=== PATIENT | female | born 1980 | race Caucasian/White ===

== ENCOUNTER 2017-01-29 16:12 | Emergency (ER) | payer MEDICAID, OTHER ==
[2017-01-29 16:32] VITALS: BP 102/70
[2017-01-29] MEDS ORDERED: GI Cocktail Oral Solution 30 ML PO ONE ×2 (16:32→17:04)
--- NOTE | 2017-01-29 16:32 | EDM.PDOC ---
ED HPI GI/ABDOMINAL - General Chief Complaint: Gastrointestinal Problem Stated Complaint: Reflux symptoms Time Seen by Provider: 01/29/17 16:32 Source of Information: Reports: Patient History Limitations: Reports: No limitations - History of Present Illness INITIAL COMMENTS - FREE TEXT/NARRATIVE: patient complains of epigastric pain for 2 days duration. Patient has been on clindamycin for a tooth infection. Complains of persistent epigastric pain. Not related to position, movement, activity. No vomiting. No difficulty with swallowing. Patient has had some diarrhea. No blood in her stool. No urinary symptoms. Denies epigastric pain or any other abdominal complaints. Pain does not radiate into her back. No diaphoresis. No pain to the shoulders. Timing/Duration: Reports: Day(s): Location: other (epigastric) Quality: Reports: ache, burning Severity: mild Associated Symptoms (-Female): Reports: denies other symptoms - Related Data Allergies/ADRs: Allergies Allergy/AdvReac Type Severity Reaction Status Date / Time erythromycin base Allergy Nausea Verified 01/29/17 16:21 Home Meds: Home Meds Vits #93/Iron Fum/FA [ Formula Tablet] 1 each PO DAILY [History] Clindamycin HCl 300 mg PO TID 01/29/17 [History] Levonorgestrel [Mirena] 1 each IY 01/29/17 [History] Past Medical History - Past Health History Medical/Surgical History: Denies Medical/Surgical History HEENT History: Reports: None Cardiovascular History: Reports: None Respiratory History: Reports: None Genitourinary History: Reports: UTI, recurrent 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: This patient is 17 weeks preg with her 4th Musculoskeletal History: Reports: Other (see below) Other Musculoskeletal History: spina bifida occulta Psychiatric History: Reports: Anxiety - Infectious Disease History Infectious Disease History: Reports: Chicken pox - Past Surgical History HEENT Surgical History: Reports: Adenoidectomy, Myringotomy w tube(s), Oral surgery Female Surgical History: Reports: Other (see below) Other Female Surgeries/Procedures: LGSIL hx, cryo done Musculoskeletal Surgical History: Reports: Other (see below) Other Musculoskeletal Surgeries/Procedures:: hx hand and toe fx, bursitis left knee Social & Family History - Family History Family Medical History: Noncontributory Cardiac: Reports: None Respiratory: Reports: None GI: Reports: None Endocrine/Metabolic: Reports: None Hematologic: Reports: None Immunologic: Reports: None - Tobacco Use Smoking Status *Q: Current Every Day Smoker Years of Tobacco use: 20 Packs/Tins Daily: 0.5 Used Tobacco, but Quit: No Month Tobacco Last Used: February Second Hand Smoke Exposure: Yes - Caffeine Use Caffeine Use: Reports: Soda - Recreational Drug Use Recreational Drug Use: No ED ROS GENERAL - Review of Systems Review Of Systems: See Below Constitutional: Reports: no symptoms HEENT: Reports: No symptoms Respiratory: Reports: No Symptoms Cardiovascular: Reports: No symptoms Endocrine: Reports: no symptoms GI/Abdominal: Reports: Diarrhea, Decreased appetite, Other (epigastric pain). Denies: Difficulty swallowing, Distension, Mucous in stool, Nausea, Vomiting : Reports: no symptoms Musculoskeletal: Reports: no symptoms Neurological: Reports: No Symptoms ED EXAM, GI/ABD - Physical Exam Exam: See Below Exam Limited By: No limitations General Appearance: alert, WD/WN, no apparent distress Throat/Mouth: Normal inspection, Normal lips, Normal gums, Normal oropharynx Neck: normal inspection, supple, non-tender, full range of motion Respiratory/Chest: no respiratory distress, lungs clear, normal breath sounds, chest non-tender Cardiovascular: regular rate, rhythm, no murmur GI/Abdominal: normal bowel sounds, soft, non tender, no distention, no mass Neurological: alert, oriented, CN II-XII intact Skin Exam: Warm, Dry, Intact Course - Vital Signs Last Recorded V/S: Last Vital Signs Temp 97.7 F 01/29/17 16:31 Pulse 86 01/29/17 16:31 Resp 16 01/29/17 16:31 BP 102/70 01/29/17 16:31 Pulse Ox 100 01/29/17 16:31 - Orders/Labs/Meds Meds: Medications Discontinued Medications Generic Name Dose Route Start Last Admin Trade Name Freq PRN Reason Stop Dose Admin Al Hydroxide/Mg Hydroxide 30 ml 01/29/17 16:32 01/29/17 16:36 Gi Cocktail PO 01/29/17 16:33 30 ml ONETIME ONE Administration - Re-Assessments/Exams Free Text/Narrative Re-Assessment/Exam: slight improvement after GI cocktail. 01/29/17 16:55 Departure - Departure Time of Disposition: 16:57 Disposition: Home, Self-Care 01 Condition: good Clinical Impression: GERD (gastroesophageal reflux disease) Qualifiers: Esophagitis presence: esophagitis presence not specified Qualified Code(s): K21.9 - Gastro-esophageal reflux disease without esophagitis Instructions: Heartburn Forms: ED Department Discharge Additional Instructions: prescription for Prilosec to take daily as directed. Advance diet as tolerated. Mechanical soft diet along with bland foods. Drink plenty of fluids. Discontinue clindamycin. Followup with dentist in the next 1-2 weeks. Followup with regular primary care provider as needed. Call or return to emergency room if any problems questions or concerns
[2017-01-29] MEDS ORDERED: GI Cocktail Oral Solution 30 ML ONE (17:04)
== END 2017-01-29 17:14 | disposition home or self-care (01) ==
LOC: DL.ED 16:12
DX: K21.9 Gastro-esophageal reflux disease without esophagitis (principal); F41.9 Anxiety disorder, unspecified; F17.210 Nicotine dependence, cigarettes, uncomplicated; Z87.440 Personal history of urinary (tract) infections; Z98.890 Other specified postprocedural states; Z88.1 Allergy status to other antibiotic agents
CPT/HCPCS: 99283; A9270

== ENCOUNTER 2017-03-07 17:27 | Emergency (ER) | payer MEDICAID, OTHER ==
[2017-03-07 17:33] VITALS: BP 112/82
--- NOTE | 2017-03-07 18:24 | EDM.PDOC ---
ED HPI GENERAL MEDICAL PROBLEM - General Chief Complaint: ENT Problem Stated Complaint: DIZZINESS,PAIN IN MOUTH, [id number] Time Seen by Provider: 03/07/17 18:10 Source of Information: Reports: Patient, RN Notes Reviewed History Limitations: Reports: No Limitations - History of Present Illness INITIAL COMMENTS - FREE TEXT/NARRATIVE: the patient is a 36-year-old female who states she woke up this morning with dizziness she states that she feels slightly off-balance. It is waxing and waning in intensity. She is still able to drive and is holding her child without difficulty. She does not report any recent falls or trauma to the head. She states this has happened before but it was for a few hours and this has lasted most of the day approximately 12 hours Onset: Today Quality: Reports: Other Severity: Mild Improves with: Reports: None Worsens with: Reports: None - Related Data Allergies Allergy/AdvReac Type Severity Reaction Status Date / Time erythromycin base Allergy Nausea Verified 03/07/17 17:29 Home Meds: Home Meds Levonorgestrel [Mirena] 1 each ASDIRECTED 01/29/17 [History] Past Medical History - Past Health History Medical/Surgical History: Denies Medical/Surgical History HEENT History: Reports: Impaired Vision Cardiovascular History: Reports: None Respiratory History: Reports: None Genitourinary History: Reports: UTI, Recurrent 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: This patient is 17 weeks preg with her 4th Musculoskeletal History: Reports: Other (See Below) Other Musculoskeletal History: spina bifida occulta Psychiatric History: Reports: Anxiety - Infectious Disease History Infectious Disease History: Reports: Chicken Pox - Past Surgical History HEENT Surgical History: Reports: Adenoidectomy, Myringotomy w Tube(s), Oral Surgery Female Surgical History: Reports: Section Social & Family History - Family History Family Medical History: Noncontributory Cardiac: Reports: None Respiratory: Reports: None GI: Reports: None Endocrine/Metabolic: Reports: None Hematologic: Reports: None Immunologic: Reports: None - Tobacco Use Smoking Status *Q: Current Every Day Smoker Years of Tobacco use: 17 Packs/Tins Daily: 0.5 Used Tobacco, but Quit: No Month Tobacco Last Used: February Second Hand Smoke Exposure: Yes - Caffeine Use Caffeine Use: Reports: Coffee, Soda - Recreational Drug Use Recreational Drug Use: No ED ROS GENERAL - Review of Systems Review Of Systems: ROS reveals no pertinent complaints other than HPI. ED EXAM, DIZZINESS - Physical Exam Exam: See Below Exam Limited By: No Limitations General Appearance: Alert, WD/WN, No Apparent Distress Eye Exam: Bilateral Eye: Abnormal EOM, Normal Inspection, PERRL Ears: Normal External Exam, Normal Canal, Hearing Grossly Normal, Normal TMs Nose: Normal Inspection, Normal Mucosa, No Blood Throat/Mouth: Normal Inspection, Normal Lips, Normal Teeth, Normal Gums, Normal Oropharynx, Normal Voice, No Airway Compromise Head Exam: Atraumatic, Normocephalic Neck: Normal Inspection, Supple, Non-Tender, Full Range of Motion Respiratory/Chest: No Respiratory Distress, Lungs Clear, Normal Breath Sounds, No Accessory Muscle Use, Chest Non-Tender Cardiovascular: Normal Peripheral Pulses, Regular Rate, Rhythm, No Edema, No Gallop, No JVD, No Murmur, No Rub Neurological: Alert, Normal Mood/Affect, Normal Dorsiflexion, CN II-XII Intact, Normal Plantar Flexion, Normal Gait, Normal Reflexes, No Motor/Sensory Deficits , Oriented x 3 Psychiatric: Normal Affect, Normal Mood Skin Exam: Warm, Dry, Intact, Normal Color, No Rash Course - Vital Signs Last Recorded V/S: Last Vital Signs Temp 97.6 F 03/07/17 17:32 Pulse 90 03/07/17 17:32 Resp 18 03/07/17 17:32 BP 112/82 03/07/17 17:32 Pulse Ox 99 03/07/17 17:32 - Re-Assessments/Exams Free Text/Narrative Re-Assessment/Exam: 03/07/17 18:20 the patient will be started on meclizine and the patient will followup with primary care on when he returns. She states she tried to make an appointment today but her a care provider is out of town. She has no nystagmus/ or true vertigo. Departure - Departure Time of Disposition: 18:21 Disposition: Home, Self-Care 01 Condition: good Clinical Impression: Dizziness, nonspecific - Discharge Information Instructions: Dizziness, [id number] Forms: ED Department Discharge Additional Instructions: discharge diagnoses Dizziness Use meclizine as directed and see your PCP on if not improving. Use medication at home first to see if it makes you drowsy- before driving while using it. Return if worse.
== END 2017-03-07 18:34 | disposition home or self-care (01) ==
LOC: DL.ED 17:27
DX: R42 Dizziness and giddiness (principal); F41.9 Anxiety disorder, unspecified; F17.210 Nicotine dependence, cigarettes, uncomplicated; Z88.1 Allergy status to other antibiotic agents; Z87.440 Personal history of urinary (tract) infections; Z98.890 Other specified postprocedural states; Z96.22 Myringotomy tube(s) status
CPT/HCPCS: 99283

== ENCOUNTER 2017-07-03 16:14 | Emergency (ER) | payer MEDICAID ==
[2017-07-03 16:25] VITALS: BP 140/76
--- NOTE | 2017-07-03 16:52 | EDM.PDOC ---
ED HPI GENERAL MEDICAL PROBLEM - General Chief Complaint: General Stated Complaint: THINKS HAS FLU Time Seen by Provider: 07/03/17 16:48 Source of Information: Reports: Patient History Limitations: Reports: No Limitations - History of Present Illness INITIAL COMMENTS - FREE TEXT/NARRATIVE: 36 yo female presents with c/o feeling tired. States that last Monday and she had " a stomach bug" and it resolved but on Monday she started "feeling run down." Denies SALVADOR, cough or any other symptoms. Onset Date: 07/01/17 Duration: Constant Location: Reports: Generalized Quality: Reports: Ache Severity: Mild Improves with: Reports: None Worsens with: Reports: None Associated Symptoms: Reports: No Other Symptoms Generalized Pain Score (Numeric/FACES): 3 - Related Data Allergies Allergy/AdvReac Type Severity Reaction Status Date / Time erythromycin base Allergy Nausea Verified 07/03/17 16:21 Home Meds: Home Meds Levonorgestrel [Mirena] 1 each ASDIRECTED 01/29/17 [History] Past Medical History - Past Health History Medical/Surgical History: Denies Medical/Surgical History HEENT History: Reports: Impaired Vision Cardiovascular History: Reports: None Respiratory History: Reports: None Genitourinary History: Reports: UTI, Recurrent 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: This patient is 17 weeks preg with her 4th Musculoskeletal History: Reports: Other (See Below) Other Musculoskeletal History: spina bifida occulta Psychiatric History: Reports: Anxiety - Infectious Disease History Infectious Disease History: Reports: Chicken Pox - Past Surgical History HEENT Surgical History: Reports: Adenoidectomy, Myringotomy w Tube(s), Oral Surgery Female Surgical History: Reports: Section Social & Family History - Family History Family Medical History: Noncontributory Cardiac: Reports: None Respiratory: Reports: None GI: Reports: None Endocrine/Metabolic: Reports: None Hematologic: Reports: None Immunologic: Reports: None - Tobacco Use Smoking Status *Q: Current Every Day Smoker Years of Tobacco use: 17 Packs/Tins Daily: 0.5 Used Tobacco, but Quit: No Month Tobacco Last Used: February Second Hand Smoke Exposure: Yes - Caffeine Use Caffeine Use: Reports: Coffee, Soda - Recreational Drug Use Recreational Drug Use: No ED ROS GENERAL - Review of Systems Review Of Systems: ROS reveals no pertinent complaints other than HPI. Constitutional: Reports: Malaise ED EXAM, GENERAL - Physical Exam Exam: See Below Exam Limited By: No Limitations General Appearance: Alert, WD/WN, No Apparent Distress Eye Exam: Bilateral Eye: EOMI, Normal Inspection, PERRL Ears: Normal External Exam, Normal Canal, Hearing Grossly Normal, Normal TMs Ear Exam: Bilateral Ear: Auricle Normal, Canal Normal, TM normal Nose: Normal Inspection, Normal Mucosa, No Blood Throat/Mouth: Normal Inspection, Normal Lips, Normal Teeth, Normal Gums, Normal Oropharynx (Reddened with 2+ tonsils with exudate bilateral. ), Normal Voice, No Airway Compromise Neck: Normal Inspection, Supple, Non-Tender, Full Range of Motion Respiratory/Chest: No Respiratory Distress, Lungs Clear, Normal Breath Sounds, No Accessory Muscle Use, Chest Non-Tender Cardiovascular: Normal Peripheral Pulses, Regular Rate, Rhythm, No Edema, No Gallop, No JVD, No Murmur, No Rub GI/Abdominal: Normal Bowel Sounds, Soft, Non-Tender, No Organomegaly, No Distention, No Abnormal Bruit, No Mass Neurological: Alert, Oriented, CN II-XII Intact, Normal Cognition, Normal Gait, No Motor/Sensory Deficits Skin Exam: Warm, Dry, Intact, Normal Color, No Rash Course - Vital Signs Last Recorded V/S: Last Vital Signs Temp 97.2 F 07/03/17 16:22 Pulse 85 07/03/17 16:22 Resp 16 07/03/17 16:22 BP 140/76 07/03/17 16:22 Pulse Ox 100 07/03/17 16:22 - Orders/Labs/Meds Orders: Active Orders 24 hr Category Date Time Status CULTURE STREP A CONFIRMATION [RM] Stat Lab 07/03/17 16:54 Results STREP SCRN A RAPID W CULT CONF [RM] Stat Lab 07/03/17 16:54 Results Departure - Departure Time of Disposition: 17:47 Disposition: Home, Self-Care 01 Condition: Good Clinical Impression: Influenza Upper respiratory infection Qualifiers: URI type: unspecified viral URI Qualified Code(s): J06.9 - Acute upper respiratory infection, unspecified; B97.89 - Other viral agents as the cause of diseases classified elsewhere - Discharge Information Instructions: Upper Respiratory Infection, Pediatric, [id number], Influenza, Adult, [id number] Forms: ED Department Discharge Additional Instructions: take tamiflu for the next 5 days and motrin as needed for the pain. Follow up with your PCP. return for worsening symptoms - My Orders Last 24 Hours: My Active Orders 07/03/17 16:54 CULTURE STREP A CONFIRMATION [RM] Stat STREP SCRN A RAPID W CULT CONF [RM] Stat - Assessment/Plan Last 24 Hours: My Active Orders 07/03/17 16:54 CULTURE STREP A CONFIRMATION [RM] Stat STREP SCRN A RAPID W CULT CONF [RM] Stat
== END 2017-07-03 18:01 | disposition home or self-care (01) ==
LOC: DL.ED 16:14
DX: J11.1 Influenza due to unidentified influenza virus with other respiratory manifestations (principal); J06.9 Acute upper respiratory infection, unspecified; F17.210 Nicotine dependence, cigarettes, uncomplicated; Z88.1 Allergy status to other antibiotic agents
CPT/HCPCS: 87081; 87430; 87804; 99283

== ENCOUNTER 2020-04-12 20:48 | Emergency (ER) | payer MEDICAID, OTHER ==
[2020-04-12 21:52] VITALS: BP 131/86; PULSE 83
--- NOTE | 2020-04-12 22:16 | CR ---
PROCEDURE INFORMATION: Exam: XR Left Foot Complete Exam date and time: 04/12/2020 10:01 PM Age: 39 years old Clinical indication: Other: Pain 2 and 3 distal metatarsals; Additional info: Pain since 1800, no injury, partial wt bearing TECHNIQUE: Imaging protocol: XR Left foot. Views: 3 or more views. COMPARISON: No relevant prior studies available. FINDINGS: Bones/joints: The alignment of the joints is anatomic and the joint spaces are maintained. There is no evidence of acute fracture. Soft tissues: No radiopaque foreign bodies are identified. There is no soft tissue swelling or calcification. IMPRESSION: Normal appearing foot.
--- NOTE | 2020-04-12 23:26 | EDM.PDOC ---
ED HPI GENERAL MEDICAL PROBLEM - General Chief Complaint: Lower Extremity Injury/Pain Stated Complaint: POSSIBLE FOOT FRACTURE Time Seen by Provider: 04/12/20 23:00 Source of Information: Reports: Patient History Limitations: Reports: No Limitations - History of Present Illness INITIAL COMMENTS - FREE TEXT/NARRATIVE: ED ambulatry with c/o pain to left foot starting tonight around 6 pm while walking, No injury. Located Mid 3rd and 4th metacarpal. 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: This 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 is 17 weeks 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 with her 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 Musculoskeletal History: Reports: Other (See Below) Other Musculoskeletal History: spina bifida occulta Psychiatric History: Reports: Anxiety - Infectious Disease History Infectious Disease History: Reports: Chicken Pox - Past Surgical History HEENT Surgical History: Reports: Adenoidectomy, Myringotomy w Tube(s), Oral Surgery Female Surgical History: Reports: Section Social & Family History - Family History Family Medical History: Noncontributory Cardiac: Reports: None Respiratory: Reports: None GI: Reports: None Endocrine/Metabolic: Reports: None Hematologic: Reports: None Immunologic: Reports: None - Tobacco Use Smoking Status *Q: Current Every Day Smoker Years of Tobacco use: 20 Packs/Tins Daily: 0.5 - Caffeine Use Caffeine Use: Reports: Coffee, Energy Drinks - Recreational Drug Use Recreational Drug Use: No Review of Systems - Review of Systems Review Of Systems: Comprehensive ROS is negative, except as noted in HPI. ED EXAM, GENERAL - Physical Exam Exam: See Below Exam Limited By: No Limitations General Appearance: Alert, No Apparent Distress Eye Exam: Bilateral Eye: EOMI Ears: Normal External Exam, Hearing Grossly Normal Nose: Normal Inspection Throat/Mouth: Normal Inspection Head: Atraumatic Neck: Normal Inspection Respiratory/Chest: No Respiratory Distress, Lungs Clear Cardiovascular: Normal Peripheral Pulses, Regular Rate, Rhythm GI/Abdominal: Soft Extremities: Normal Inspection, Normal Range of Motion, No Pedal Edema, Other (No deformity non tender to palpation, no swelling or bruising. to left foot). No: Leg Pain Neurological: Alert, Oriented Psychiatric: Normal Affect, Normal Mood Skin Exam: Warm, Dry, Wound/Incision (pea size abrasion left foot mid 4th and 3rd metacarpal ) Course - Vital Signs Last Recorded V/S: Last Vital Signs Temp 96.2 F L 04/12/20 21:20 Pulse 83 04/12/20 21:20 Resp 17 04/12/20 21:20 BP 131/86 04/12/20 21:20 Pulse Ox 100 04/12/20 21:20 Departure - Departure Time of Disposition: 23:23 Disposition: Home, Self-Care 01 Condition: Good Clinical Impression: Left foot pain - Discharge Information *PRESCRIPTION DRUG MONITORING PROGRAM REVIEWED*: No *COPY OF PRESCRIPTION DRUG MONITORING REPORT IN PATIENT [place]: No Instructions: Foot Pain Forms: ED Department Discharge Additional Instructions: solid shoe ice to foot tonight alternate tylenol and ibuprofen every 4 hours as needed for discomfort clinic next week if not improving Sepsis Event Note (ED) - Evaluation Sepsis Screening Result: No Definite Risk - Focused Exam Vital Signs: Vital Signs Temp Pulse Resp BP Pulse Ox 04/12/20 21:20 96.2 F L 83 17 131/86 100
== END 2020-04-12 23:25 | disposition home or self-care (01) ==
LOC: DL.ED 20:48
DX: S90.812A Abrasion, left foot, initial encounter (principal); F17.210 Nicotine dependence, cigarettes, uncomplicated; Z88.1 Allergy status to other antibiotic agents; X58.XXXA Exposure to other specified factors, initial encounter; Y93.01 Activity, walking, marching and hiking
CPT/HCPCS: 73630-LT; 99283

== ENCOUNTER 2024-07-20 17:00 | Emergency (ER) | payer MEDICAID, OTHER ==
[2024-07-20 17:16] VITALS: BP 145/104; PULSE 99
[2024-07-20] MEDS: Take Home: Clindamycin HCl 150 MG, 12 Cap Pack PO ONE (17:22)
[2024-07-20] MEDS: Take Home: Lidocaine 2% Viscous Solution 15 ML UD, 2 Cup Pack PO ONE (17:22)
== END 2024-07-20 17:28 | disposition home or self-care (01) ==
LOC: DL.ED 17:00
DX: K04.7 Periapical abscess without sinus (principal); Z79.899 Other long term (current) drug therapy; Z88.1 Allergy status to other antibiotic agents
CPT/HCPCS: 99282; 99283; A9270-GY

== ENCOUNTER 2024-11-20 20:07 | Emergency (ER) | payer SELFPAY ==
[2024-11-21 00:11] VITALS: BP 140/91; PULSE 83
== END 2024-11-21 00:07 | disposition home or self-care (01) ==
LOC: DL.ED 20:07
DX: J40 Bronchitis, not specified as acute or chronic (principal); F17.210 Nicotine dependence, cigarettes, uncomplicated; Z88.1 Allergy status to other antibiotic agents; Z79.899 Other long term (current) drug therapy
CPT/HCPCS: 99283

== ENCOUNTER 2025-05-29 18:52 | Emergency (ER) | payer BC ==
[2025-05-29 19:43] VITALS: BP 119/75; PULSE 89
== END 2025-05-29 19:38 | disposition home or self-care (01) ==
LOC: DL.ED 18:52
DX: L03.116 Cellulitis of left lower limb (principal); F17.210 Nicotine dependence, cigarettes, uncomplicated; Z88.1 Allergy status to other antibiotic agents; Z79.899 Other long term (current) drug therapy
CPT/HCPCS: 99282; A9270; 99283